=== PATIENT | female | born 1960 | race Caucasian/White ===

== ENCOUNTER → 2018-01-01 | Day surgery (SDC) | payer BC ==
[~2018-01-01] MED LIST: ACETAMINOPHEN 1000 MG/100 ML IV ONE; ASPIR 8181 MG PO; CARVEDILOL3.125 MG PO; CLINDAMYCIN PHOS 900MG/ D5W 50 50 ML IV ONE; DEXAMETHASONE SOD PHOS INJ 4 MG/ML VIAL ONE; EPHEDRINE SULFATE INJ 50 MG/10 ML SYR ONE; FENTANYL CITRATE/PF 100MCG/2 ML INJ ONE; GLYCOPYRROLATE INJ 1MG/ 5 ML SYR ONE; IBANDRONATE SO150 MG PO; KETOROLAC TROMETHAMINE 30 MG/ML VIAL ONE; KRILL OIL500 MG PO; LIDOCAINE 2%/ EPINEPHRINE 20ML MDV ONE; LIDOCAINE HCL 2% JELLY 5 ML TUBE ONE; LIDOCAINE HCL 2% LOCAL INJ 5 ML SDV VIAL INJ ONE; MAGNESIUM OXID400 MG PO; MIDAZOLAM HCL 2 MG/2 ML VIAL ONE; NEOSTIGMINE 5 MG/5ML SYR ONE; ONDANSETRON HCL INJ 2 MG/ML VIAL ONE; PROPOFOL IV EMULSION 10 MG/ML 20 ML VIAL ONE; ROCURONIUM BROMIDE 10 MG/ML 5ML VIAL ONE; ROPIVACAINE 0.5% 5 MG/ML 30 ML SDV ONE; SERTRALINE HCL50 MG PO; SEVOFLURANE INHAL SOLN 250 ML PEN BTL ONE; SIMVASTATIN20 MG PO; SPIRONOLACTONE25 MG PO; VITAMIN D35000 UNIT/ PO
--- OUTSIDE RECORDS SUMMARY | 2018-01-01 12:02 | XMS REPORT ---
Author Author [facility] Address Unknown Phone Unavailable Care Team Providers Care Pulp Mixer Name Role Phone EUGENIO CHERYL Unavailable Unavailable Problems This patient has no known problems. Allergies, Adverse Reactions, Alerts This patient has no known allergies or adverse reactions. Medications This patient has no known medications. Encounters Start Date/Time End Date/Time Encounter Type Admission Type Attending Clinicians Care Facility Care Department Encounter ID 2017-11-06 09:56:00 2017-11-06 14:50:00 Outpatient C EUGENIO, CHERYL [facility] [id number] Results Test Description Test Time Test Comments Text Results Atomic Results Result Comments PRO TIME AND PTT 2017-11-01 16:57:00 PT (test code=TT) 10.7 s 9.8-13.6 INR (test code=INR) 1.0 INRH (test code=INRH) SUGGESTED THERAPEUTIC RANGE FOR INR: 2.5 - 3.5 For Patients with Prosthetic Valves or Patients with recurrent Thromboembolic Events 2.0 - 3.0 For Most Other Applications PTT (test code=PTT) 29.4 s 20.2-38.0 PTTH (test code=PTTH) To monitor the effectiveness of heparin, we offer the Anti-Xa (Heparin Assay). It can be used for either unfractionated or LMW Heparin. Order Code is ANTI-XA CBC (INCLUDES AUTOMATED DIFFERENTIAL)2017-11-01 16:48:00* Test Item Value Reference Range Comments WBC (test code=WBC) 4.4 10\S\3/uL 4.5-11.0 RBC (test code=RBC) 3.81 10\S\6/uL 4.20-5.60 HGB (test code=HBG) 12.9 g/dL 12.0-15.5 HCT (test code=HCT) 38.8 % 35.0-44.0 MCV (test code=MCV) 101.8 fL 81.0-99.0 MCH (test code=MCH) 33.9 pg 27.0-31.0 MCHC (test code=MCHC) 33.2 g/dL 32.0-36.0 RDW (test code=RDW) 12.3 % 11.5-14.5 PLT (test code=PLT) 182 10\S\3/uL 130-400 MPV (test code=MPV) 10.6 fL 9.4-12.4 NEUTROP # (test code=NE#) 2.1 10\S\3/uL 1.6-8.0 LYMPH # (test code=LY#) 1.9 10\S\3/uL 1.1-3.5 MONOCYTE # (test code=MO#) 0.3 10\S\3/uL 0.0-1.1 EOSINOPH # (test code=EO#) 0.1 10\S\3/uL 0.0-0.7 BASOPHIL # (test code=BA#) 0.1 10\S\3/uL 0.0-0.3 IG # (test code=IG#) 0.01 10\S\3/uL 0.00-0.06 NRBC # (test code=NRBC#) 0.00 10\S\3/uL 0.00-0.01 NEUTROPH % (test code=NE%) 46.4 % 35.0-73.0 LYMPH % (test code=LY%) 42.8 % 20.0-55.0 MONO % (test code=MO%) 7.2 % 2.5-10.0 EOSINOPH % (test code=EO%) 2.3 % 0.0-5.0 BASOPHIL % (test code=BA%) 1.1 % 0.0-2.0 IG % (test code=IG%) 0.2 % 0.0-0.8 NRBC% (test code=NRBC%) 0.0 % 0.0-0.2 MANDIFF (test code=MDIFF) NO NO RBC MORPH (test code=RBCMOR) NORMAL
--- OUTSIDE RECORDS SUMMARY | 2018-01-01 12:02 | XMS REPORT | Clinical Summary ---
Author Author [facility] Address Unknown Phone Unavailable Care Team Providers Care Asic Design Engineer Name Role Phone Collins Swift MD PCP Unavailable Allergies Active Allergy Reactions Severity Noted Date Comments Penicillins 03/20/2017 Tetracycline 03/20/2017 Current Medications Prescription Sig. Disp. Refills Start End Date Status Date simvastatin (ZOCOR) 20 MG 03/07/20 Active tablet 17 sertraline (ZOLOFT) 25 MG Take 25 mg by mouth once 3 02/15/20 Active tablet daily. 17 levoFLOXacin (LEVAQUIN) Take 500 mg by mouth once 0 01/31/20 Active 500 MG tablet daily. 17 fluconazole (DIFLUCAN) TAKE 1 TABLET BY ORAL 1 02/27/20 Active 150 MG tablet ROUTE ONCE 17 SYMBICORT 80-4.5 USE 2 PUFFS 2 TIMES DAILY 11 02/28/20 Active mcg/actuation inhaler 17 carvedilol (COREG) 3.125 Take 3.125 mg by mouth 2 Active MG tablet (two) times a day with meals. calcium citrate-vitamin Take 1 tablet by mouth 2 Active D3 (CITRACAL+D) 315-200 (two) times a day. mg-unit per tablet meloxicam (MOBIC) 15 mg Take 1 tablet (15 mg 30 tablet 0 03/20/20 tabletIndications: total) by mouth daily for 17 17 Plantar fasciitis, 30 days. Achilles tendinitis, unspecified laterality Active Problems Problem Noted Date Plantar fasciitis 03/20/2017 Achilles tendinitis 03/20/2017 Right foot pain 03/20/2017 Encounters Date Type Specialty Care Team Description 03/20/2017 Office Visit Orthopedic Surgery Buzz Casas MD Plantar fasciitis (Primary Dx);Achilles tendinitis, unspecified laterality;Right foot pain after 12/31/2016 Family History Medical History Relation Name Comments No Known Problems Mother Cancer Sister Ulcers Sister Relation Name Status Comments Mother Sister Social History Tobacco Use Types Packs/Day Years Used Date Current Some Day Smoker Alcohol Use Drinks/Week oz/Week Comments No Sex Assigned at Date Recorded Not on file Last Filed Vital Signs Vital Sign Reading Time Taken Blood Pressure 130/80 03/20/2017 3:43 PM CDT Pulse - - Temperature - - Respiratory Rate - - Oxygen Saturation - - Inhaled Oxygen - - Concentration Weight 68.5 kg (151 lb) 03/20/2017 3:43 PM CDT Height 167.6 cm (5' 6") 03/20/2017 3:43 PM CDT Body Mass Index 24.37 03/20/2017 3:43 PM CDT Plan of Treatment Health Maintenance Due Date Last Done Comments PAP SMEAR 1979 COLONOSCOPY 2008 MAMMOGRAM 2008 INFLUENZA VACCINE 07/02/2017 Results * XR Foot 3+ Vw Right (03/20/2017 3:47 PM) Specimen Performing Laboratory [facility] [address] [place] [address] Narrative Bunion and bunionette surgery with hammertoe surgery with retained hardware after 12/31/2016 Insurance Payer Benefit Subscriber ID Type Phone Address Plan / Group BCBS BCBS [id number] PPO [id number] PPO/KEVIN [place] PPO amily FELIX LOPEZ [phone]
--- NOTE | 2018-01-02 10:30 | Operative Report ---
DATE OF PROCEDURE: January 01, 2018 PREOPERATIVE DIAGNOSIS: Right shoulder labral tear. POSTOPERATIVE DIAGNOSES 1. Right shoulder synovitis. 2. Right shoulder partial rotator cuff tear. 3. Right shoulder labral tear. 4. Right shoulder impingement. PROCEDURES PERFORMED 1. Right shoulder examination under anesthesia. 2. Right shoulder arthroscopy. 3. Right shoulder arthroscopic debridement of synovitis. 4. Right shoulder arthroscopic debridement of a partial rotator cuff tear. 5. Right shoulder arthroscopic biceps tenodesis. 6. Right shoulder arthroscopic subacromial decompression and acromioplasty. WOOD GRINDER OPERATOR: Joana King. ANESTHESIA: General endotracheal intubation anesthesia. IV FLUIDS: Per the anesthesia record. OPERATIVE PROCEDURE IN DETAIL: Ms. Morris was taken to the operating room and placed in the supine position on the operating table. Following induction of general anesthesia as well as endotracheal intubation, the patient's right upper extremity was examined under anesthesia. She was found to have a normal-appearing shoulder with no gross abnormalities. Passive range of motion of the shoulder joint was full, and there was no evidence of instability. The patient's upper extremity was prepped and draped in the standard surgical fashion. Standard posterolateral and anterior portals were created without difficulty. The scope was placed within the shoulder joint atraumatically, and examination of glenohumeral articulation demonstrated no significant evidence of chondromalacia. There were no loose bodies in the shoulder joint. There was diffuse synovitis in the shoulder. A probe was placed in the shoulder joint. Examination of the biceps tendon demonstrated that the intra-articular portion of the biceps tendon was intact, but there was a labral injury. Additionally, there was a partial thickness tear of the anterior leading edge of the rotator cuff that comprised less than 50% of its insertion site. A shaver was placed in the shoulder joint, and the rotator cuff injury was debrided. The synovitis was also debrided at this time. The biceps attachment was thoroughly evaluated, and determination was made to provide the patient an intra-articular biceps tenodesis. The biceps was then released from its attachment to the superior edge of the glenoid. Hemostasis was obtained. The shoulder was deflated of its sterile normal saline. The scope was placed in the subacromial space, and significant inflammation was encountered. A lateral portal was created through an outside-in technique, and a shaver was placed in the subacromial space, and bursectomy was performed. The sutures for the biceps tenodesis rotator interval . The patient had a downward-sloping acromion impinging upon the rotator cuff tissue. There was also mild fraying of the rotator cuff tissue along its bursal surface. The rotator cuff tissue was debrided further, and the coracoacromial ligament was resected. An aggressive acromioplasty was performed at this time. The shoulder was then deflated of its sterile normal saline. Each of the portal sites were closed. Sterile dressings were applied. The patient was provided a shoulder immobilizer, awakened and taken to postanesthesia care unit in stable condition. Joana King acted as first aid trainer for this case and was necessary for both prepping and draping the patient as well as positioning the arm and passage of suture that allowed this case to be successful. Job#: [id number]
== END | disposition home or self-care (01) ==
LOC: OR 12:00
PROVIDERS: ATTEND Specialist
DX: S43.431A Superior glenoid labrum lesion of right shoulder, initial encounter (principal); M75.111 Incomplete rotator cuff tear or rupture of right shoulder, not specified as traumatic; M65.811 Other synovitis and tenosynovitis, right shoulder; M81.0 Age-related osteoporosis without current pathological fracture; R00.1 Bradycardia, unspecified; I34.1 Nonrheumatic mitral (valve) prolapse; J45.909 Unspecified asthma, uncomplicated; F41.9 Anxiety disorder, unspecified; X58.XXXA Exposure to other specified factors, initial encounter; Z01.810 Encounter for preprocedural cardiovascular examination; Z79.82 Long term (current) use of aspirin; Z87.01 Personal history of pneumonia (recurrent); Z87.891 Personal history of nicotine dependence
CPT/HCPCS: 29826; 29828; 93005; J1100; J1885; J2001 ×3; J2250; J2405; J2795